=== PATIENT | male | born 1970 | race Native Hawaiian/Other Pacific Islander ===

== ENCOUNTER → 2016-10-24 | Outpatient (CLI) | payer BC ==
[2016-10-24 16:57] LABS: ANION GAP 14 (5-19); BLOOD UREA NITROGEN 13 mg/dL (7-20); CALCIUM 9.9 mg/dL (8.4-10.2); CARBON DIOXIDE 27 mmol/L (22-30); CHLORIDE 103 mmol/L (98-107); CREATININE RESULT 1.13 mg/dL (0.52-1.25); GLUCOSE 96 mg/dL (75-110); POTASSIUM 4.2 mmol/L (3.6-5.0); SODIUM 143.5 mmol/L (137-145)
[2016-10-24 17:33] LABS: URINE CREATININE 102.5 mg/dL (22-328)
[2016-10-24 17:37] LABS: CREATININE 1.13 mg/dL (0.52-1.25); URINE CREATININE 102.5 mg/dL (22-328)
[2016-10-27 07:14] LABS: PROTEIN TOTAL UR 24HR <83.1 mg/24 hr (30.0-150.0)
== END ==
LOC: OD 15:35
PROVIDERS: ATTEND Internal Medicine Nephrology
DX: N28.9 Disorder of kidney and ureter, unspecified (principal)
CPT/HCPCS: 36415; 80048; 82570; 82575; 84156

== ENCOUNTER 2016-12-06 12:05 | Emergency (ER) | payer BC ==
--- NOTE | 2016-12-06 13:27 | ER Document Report ---
ED Medical Screen (RME) - General Chief Complaint: Chest Pain Stated Complaint: CHEST PAIN Notes: Patient is a 46-year-old male without past medical history who presents with concerns of chest pain that woke him from sleep. Described as a retrosternal stabbing pain that has been intermittent since onset. It started approximately 9 AM. No history of similar symptoms in the past. He has not had any associated shortness of breath, diaphoresis or vomiting. He has no cardiac history. No history of DVT or pulmonary embolus. No history of aortic dissection or connective tissue disorders. TRAVEL OUTSIDE OF THE [place] IN LAST 30 DAYS: No - Related Data Allergies/Adverse Reactions: No Known Allergies Allergy (Verified 12/06/16 13:03) Past Medical History - Social History Frequency of alcohol use: Rare Drug Abuse: None Renal/ Medical History: Denies: Hx Peritoneal Dialysis Past Surgical History: Reports: Hx Cholecystectomy, Hx Orthopedic Surgery - Right knee x2, Left knee Physical Exam - Vital signs Vitals: Temp Pulse Resp BP Pulse Ox 97.9 F 64 16 125/76 98 12/06/16 12:21 12/06/16 12:21 12/06/16 12:21 12/06/16 12:21 12/06/16 12:21 Interpretation: Normal Notes: PHYSICAL EXAMINATION: GENERAL: Well-appearing, well-nourished and in no acute distress. HEAD: Atraumatic, normocephalic. EYES: Pupils equal round and reactive to light, extraocular movements intact, sclera anicteric, conjunctiva are normal. ENT: nares patent, oropharynx clear without exudates. Moist mucous membranes. NECK: Normal range of motion, supple without lymphadenopathy LUNGS: Breath sounds clear to auscultation bilaterally and equal. No wheezes rales or rhonchi. HEART: Regular rate and rhythm without murmurs ABDOMEN: Soft, nontender, normoactive bowel sounds. No guarding, no rebound. No masses appreciated. EXTREMITIES: Normal range of motion, no pitting or edema. No cyanosis. NEUROLOGICAL: No focal neurological deficits. Moves all extremities spontaneously and on command. PSYCH: Normal mood, normal affect. SKIN: Warm, Dry, normal turgor, no rashes or lesions noted. Course - Vital Signs Vital signs: Temp Pulse Resp BP Pulse Ox 97.9 F 64 16 125/76 98 12/06/16 12:21 12/06/16 12:21 12/06/16 12:21 12/06/16 12:21 12/06/16 12:21
[2016-12-06 13:38] LABS: ABSOLUTE BASOPHILS # (AUTO) 0.1 10^3/uL (0.0-0.2); ABSOLUTE EOSINOPHILS # (AUTO) 0.3 10^3/uL (0.0-0.6); ABSOLUTE LYMPHOCYTES (AUTO) 2.7 10^3/uL (0.5-4.7); ABSOLUTE MONOCYTES (AUTO) 0.5 10^3/uL (0.1-1.4); ABSOLUTE NEUT (AUTO) 2.9 10^3/uL (1.7-8.2); BASOPHILS % (AUTO) 0.8 % (0-2); EOSINOPHILS % (AUTO) 4.6 % (0-6); HEMATOCRIT 50.3 % (37.9-51.0); HEMOGLOBIN 16.7 g/dL (13.5-17.0); HGB HCT DIFFERENCE -0.2; MEAN CORPUSCULAR HEMOGLOBIN 29.7 pg (27.0-33.4); MEAN CORPUSCULAR HGB CONC 33.1 g/dL (32.0-36.0); MEAN CORPUSCULAR VOLUME 90 fl (80-97); MONOCYTES % (AUTO) 7.4 % (3-13); RED BLOOD COUNT 5.62 10^6/uL (4.35-5.55); RED CELL DISTRIBUTION WIDTH 13.3 % (11.5-14.0); SEGMENTED NEUTROPHILS % (AUTO) 45.2 % (42-78); WHITE BLOOD COUNT 6.5 10^3/uL (4.0-10.5)
[2016-12-06 13:53] LABS: ANION GAP 10 (5-19); BLOOD UREA NITROGEN 12 mg/dL (7-20); CALCIUM 9.6 mg/dL (8.4-10.2); CARBON DIOXIDE 30 mmol/L (22-30); CHLORIDE 103 mmol/L (98-107); GLUCOSE 99 mg/dL (75-110); POTASSIUM 4.8 mmol/L (3.6-5.0); SODIUM 142.7 mmol/L (137-145)
[2016-12-06] MEDS ORDERED: MAG HYDROX/AL HYDROX/SIMETH SUSP 30 ML UDCUP PO ONE (14:24)
[2016-12-06] MEDS ORDERED: LIDOCAINE 2% VISCOUS SOLN 20 ML UDCUP PO ONE (14:24)
[2016-12-06] MEDS ORDERED: METOCLOPRAMIDE HCL ORAL SOLN 10 MG/10 ML UDCUP PO ONE (14:24)
--- NOTE | 2016-12-06 15:10 | ER Document Report ---
ED General - General Chief Complaint: Chest Pain Stated Complaint: CHEST PAIN TRAVEL OUTSIDE OF THE [place] IN LAST 30 DAYS: No - HPI Patient complains to provider of: chest pain Notes: Patient coming in for chest pain. Patient states chest pain and epigastric pain when the nausea vomiting shortness of breath diarrhea diaphoresis starting early this morning upon awakening. Patient states last time he had similar pain yet have his gallbladder removed. Patient denies any smoking drinking alcohol abuse. Patient states he did used to have GI problems is to be on Nexium however has not been on any Nexium in the past 7 years. Upon my evaluation patient states pain resolved no other complaints no recent travel - Related Data Allergies/Adverse Reactions: No Known Allergies Allergy (Verified 12/06/16 13:03) Past Medical History - Social History Smoking Status: Never Smoker Frequency of alcohol use: Rare Drug Abuse: None Family History: Reviewed & Not Pertinent Patient has suicidal ideation: No Patient has homicidal ideation: No Renal/ Medical History: Denies: Hx Peritoneal Dialysis Past Surgical History: Reports: Hx Cholecystectomy, Hx Orthopedic Surgery - Right knee x2, Left knee Review of Systems - Review of Systems Constitutional: No symptoms reported EENT: No symptoms reported Cardiovascular: Chest pain Respiratory: No symptoms reported Gastrointestinal: No symptoms reported Genitourinary: No symptoms reported Male Genitourinary: No symptoms reported Musculoskeletal: No symptoms reported Skin: No symptoms reported Hematologic/Lymphatic: No symptoms reported Neurological/Psychological: No symptoms reported Physical Exam - Vital signs Vitals: Temp Pulse Resp BP Pulse Ox 97.9 F 64 16 125/76 98 12/06/16 12:21 12/06/16 12:21 12/06/16 12:21 12/06/16 12:21 12/06/16 12:21 Interpretation: Normal - General General appearance: Appears well, Alert - HEENT Head: Normocephalic, Atraumatic Eyes: Normal Pupils: PERRL - Respiratory Respiratory status: No respiratory distress Chest status: Nontender Breath sounds: Normal Chest palpation: Normal - Cardiovascular Rhythm: Regular Heart sounds: Normal auscultation Murmur: No - Abdominal Inspection: Normal Distension: No distension Bowel sounds: Normal Tenderness: Tender - Epigastric tenderness to palpation mild to moderate reproduces patient's pain Organomegaly: No organomegaly - Back Back: Normal, Nontender - Extremities General upper extremity: Normal inspection, Nontender, Normal color, Normal ROM , Normal temperature General lower extremity: Normal inspection, Nontender, Normal color, Normal ROM , Normal temperature, Normal weight bearing. No: Alicja's sign - Neurological Neuro grossly intact: Yes Cognition: Normal Orientation: AAOx4 Felch Coma Scale Eye Opening: Spontaneous Felch Coma Scale Verbal: Oriented Felch Coma Scale Motor: Obeys Commands Felch Coma Scale Total: 15 Speech: Normal Motor strength normal: LUE, RUE, LLE, RLE Sensory: Normal - Psychological Associated symptoms: Normal affect, Normal mood - Skin Skin Temperature: Warm Skin Moisture: Dry Skin Color: Normal Course - Re-evaluation Re-evalutation: 12/06/16 15:03 Lab results show any critical etiology. EKG is normal. Chest x-rays normal. Unclear etiology for the patient's "chest pain however on physical examination patient has more epigastric pain more likely possible GI etiology. Patient will be given a prescription for Prilosec patient will be discharged home. - Vital Signs Vital signs: Temp Pulse Resp BP Pulse Ox 97.9 F 64 16 125/76 98 12/06/16 12:21 12/06/16 12:21 12/06/16 12:21 12/06/16 12:21 12/06/16 12:21 - Laboratory Result Diagrams: 12/06/16 13:27 12/06/16 13:27 Laboratory results interpreted by me: 12/06/16 13:27 RBC 5.62 H Discharge - Discharge Clinical Impression: chest pain unclear etiology Condition: Good Disposition: HOME, SELF-CARE Instructions: Chest Wall Pain ([facility]), Gastritis ([facility]) Additional Instructions: Your workup today shows no critical etiology for your chest pain. I do believe your pain may be GI in nature due to esophageal spasms acid reflux or gastritis. We will place you on a medication called omeprazole for the next 2 weeks to see if this will aid in your symptoms. I would highly recommend following up with your primary care physician on Thursday. Return to the ER if there is any change or worsening of her symptoms. Prescriptions: Omeprazole 20 mg PO DAILY #14 capsule. Referrals: OSMAN ORTIZ MD [Primary Care Provider] - Follow up in 3-5 days
--- NOTE | 2016-12-06 15:12 | EKG REPORT ---
SEVERITY:- BORDERLINE ECG - SINUS RHYTHM BORDERLINE T ABNORMALITIES, INFERIOR LEADS : Confirmed by: Davi Bloom MD 06-Dec-2016 15:11:45
[2016-12-06 15:46] VITALS: BP 119/72
== END 2016-12-06 15:45 | disposition home or self-care (01) ==
LOC: ER 12:05
DX: R07.9 Chest pain, unspecified (principal); R10.13 Epigastric pain; R11.2 Nausea with vomiting, unspecified; R06.02 Shortness of breath; R19.7 Diarrhea, unspecified; R61 Generalized hyperhidrosis; Z90.49 Acquired absence of other specified parts of digestive tract; Z87.19 Personal history of other diseases of the digestive system
CPT/HCPCS: 93005; 99285; 36415; 83690; 85025; 80048; 84484; 71010; 93010; J3490